=== PATIENT | female | born 1940 | race Two or more races ===

== ENCOUNTER 2022-01-05 04:29 | Inpatient (IN) | payer OTHER ==
[~2022-01-05] VITALS: Ht 154.9 cm; Wt 88.9 kg
[~2022-01-05 04:29] MED LIST: POLY119PG PO
[2022-01-06] MEDS ORDERED: LOSARTAN POTASS50 MG (08:22)
[2022-01-06] MEDS ORDERED: HYDROCHLOROTH12.5 MG (08:22)
[2022-01-06] MEDS ORDERED: EZETIMIBE10 MG (08:22)
[2022-01-06] MEDS ORDERED: HYDROCORTISONE59 ML (08:22)
[2022-01-06] MEDS ORDERED: AMMONIUM LACTA385 GM (08:22)
[2022-01-06] MEDS ORDERED: FLONASE16 GM (08:22)
[2022-01-06] MEDS ORDERED: TRIAMCINOLONE A15 G1 (08:22)
[2022-01-06] MEDS ORDERED: BENADRYL ITCH28.3 GM (08:22)
[2022-01-06] MEDS ORDERED: EUCRISA60 GM (08:22)
[2022-01-06] MEDS ORDERED: VITAMIN D3250 MCG (08:23)
[2022-01-06] MEDS ORDERED: ROSUVASTATIN CA40 MG (08:23)
[2022-01-06] MEDS ORDERED: AMLODIPINE-BEN1 EAC5 (08:23)
[2022-01-06] MEDS ORDERED: GABAPENTIN100 M2 (08:23)
[2022-01-06] MEDS ORDERED: SYMBICORT 16010.2 GM (08:23)
[2022-01-06] MEDS ORDERED: SYNTHROID75 MCG (08:23)
[2022-01-06] MEDS ORDERED: OMEPRAZOLE40 MG (08:23)
== END 2022-01-07 18:04 | disposition home or self-care (01) | DRG 305 ==
LOC: ER 04:29 → MEDJ 17:27 → SEC-K 17:27 → MEDJ 01-06 10:25
PROVIDERS: ADMIT Internal Medicine; ATTEND Internal Medicine
PROC: 4A12X4Z Monitoring of Cardiac Electrical Activity, External Approach (ICD-10-PCS; principal; 2022-01-06)
PROC: B24BZZZ Ultrasonography of Heart with Aorta (ICD-10-PCS; 2022-01-06)
DX: I16.0 Hypertensive urgency (principal); I20.9 Angina pectoris, unspecified; E78.49 Other hyperlipidemia; Z20.822 Contact with and (suspected) exposure to COVID-19; E66.8 Other obesity; I10 Essential (primary) hypertension

== ENCOUNTER 2024-05-09 17:19 | Emergency (ER) | payer OTHER ==
[~2024-05-09] VITALS: Ht 154.9 cm; Wt 81.6 kg
[~2024-05-09 17:19] MED LIST changes: +AMLODIPINE-BEN1 EAC5; +AMMONIUM LACTA385 GM; +BENADRYL ITCH28.3 GM; +EUCRISA60 GM; +EZETIMIBE10 MG; +FLONASE16 GM; +GABAPENTIN100 M2; +HYDROCHLOROTH12.5 MG; +HYDROCORTISONE59 ML; +LOSARTAN POTASS50 MG; +OMEPRAZOLE40 MG; +ROSUVASTATIN CA40 MG; +SYMBICORT 16010.2 GM; +SYNTHROID75 MCG; +TRIAMCINOLONE A15 G1; +VITAMIN D3250 MCG
[2024-05-09 17:27] VITALS: BP 145/87; O2SAT 99
[2024-05-09] MEDS ORDERED: KETOROLAC TROMETHAMINE 30 MG VIAL IM STA (19:31)
[2024-05-09] MEDS ORDERED: IBU600 MG PO (21:08)
== END 2024-05-09 21:20 | disposition home or self-care (01) ==
LOC: ER 17:19
DX: S09.8XXA Other specified injuries of head, initial encounter (principal); W18.39XA Other fall on same level, initial encounter; Y93.89 Activity, other specified; Y92.89 Other specified places as the place of occurrence of the external cause; Z91.041 Radiographic dye allergy status; Z91.013 Allergy to seafood; E78.00 Pure hypercholesterolemia, unspecified; E03.8 Other specified hypothyroidism; I10 Essential (primary) hypertension
CPT/HCPCS: 70450; 96372; 99284; J1885

== ENCOUNTER → 2024-05-12 | Emergency (ER) | payer OTHER ==
[~2024-05-12] MED LIST changes: +IBU600 MG PO
== END | disposition left against medical advice (07) ==
LOC: ER 17:35
DX: Z53.21 Procedure and treatment not carried out due to patient leaving prior to being seen by health care provider (principal)

== ENCOUNTER 2024-05-15 11:52 | Emergency (ER) | payer OTHER ==
[~2024-05-15] VITALS: Ht 154.9 cm; Wt 84.4 kg
== END 2024-05-15 14:32 | disposition home or self-care (01) ==
LOC: ER 11:54
DX: Z48.02 Encounter for removal of sutures (principal); Z91.013 Allergy to seafood; Z91.041 Radiographic dye allergy status

== ENCOUNTER 2024-07-29 13:50 | Emergency (ER) | payer OTHER ==
[~2024-07-29] VITALS: Ht 154.9 cm; Wt 84.4 kg
[2024-07-29] MEDS ORDERED: ACETAMINOPHEN 500 MG GEL..CAP PO ONE ×2 (14:30→15:17)
[2024-07-29] MEDS ORDERED: ORPHENADRINE CITRATE 30 MG/ML AMPUL IM ONE (14:30)
[2024-07-29] MEDS ORDERED: ORPHENADRINE CITRATE 30 MG/ML AMPUL ONE (15:17)
[2024-07-29 16:29] LABS: HEMATOCRIT 41.6 % (36.0-45.00); HEMOGLOBIN 14.4 g/dL (12.0-15.00); MEAN CELL VOLUME 95.5 fL (80.00-100.00); MEAN CORPUSCULAR HGB CONC 34.6 g/dl (32.0-36.0); PLATELET COUNT 297 K/uL (150-450); RED BLOOD COUNT 4.35 M/uL (4.00-6.00); RED CELL DISTRIBUTION WIDTH 14.4 % (11.5-14.5)
[2024-07-29 17:01] LABS: ALBUMIN 3.5 gm/dL (3.4-5.0); BILIRUBIN TOTAL 0.3 mg/dL (0.3-1.2); CALCIUM 9.2 mg/dL (8.5-10.1); CREATININE SERUM 0.65 mg/dL (0.55-1.02); GFR 87.26; GLOBULINA 3.8 G/DL (2.4-3.5); POTASSIUM 3.96 mEq/L (3.5-5.1); TOTAL PROTEIN 7.3 gm/dL (6.4-8.2)
[2024-07-29] MEDS ORDERED: ZANAFLEX2 M1 PO (18:00)
== END 2024-07-29 18:44 ==
LOC: ER 13:50
PROVIDERS: General Practice
DX: S00.93XA Contusion of unspecified part of head, initial encounter (principal); S60.221A Contusion of right hand, initial encounter; W18.39XA Other fall on same level, initial encounter; Y93.89 Activity, other specified; Y92.89 Other specified places as the place of occurrence of the external cause; Y99.9 Unspecified external cause status; M51.369 Other intervertebral disc degeneration, lumbar region without mention of lumbar back pain or lower extremity pain; M85.841 Other specified disorders of bone density and structure, right hand; M85.88 Other specified disorders of bone density and structure, other site; I10 Essential (primary) hypertension; E03.9 Hypothyroidism, unspecified; Z88.8 Allergy status to other drugs, medicaments and biological substances; Z91.013 Allergy to seafood; Z87.09 Personal history of other diseases of the respiratory system
CPT/HCPCS: 36415; 70450; 72125; 73130; 73521; 93005; 96372; 99284; J2360

== ENCOUNTER 2025-03-11 09:54 | Emergency (ER) | payer OTHER ==
[~2025-03-11] VITALS: Ht 154.9 cm; Wt 83.9 kg
[~2025-03-11 09:54] MED LIST changes: +ZANAFLEX2 M1 PO
[2025-03-11] MEDS ORDERED: KETOROLAC TROMETHAMINE 60 MG VIAL IM ONE ×2 (10:30→11:07)
[2025-03-11] MEDS ORDERED: DEXAMETHASONE SODIUM PHOSPHATE 4 MG/ML VIAL IM ONE (10:30)
[2025-03-11] MEDS ORDERED: DEXAMETHASONE SODIUM PHOSPHATE 4 MG/ML VIAL ONE (11:07)
[2025-03-11 11:24] LABS: BASO % 0.3 % (0.1-1.2); EOS # 0.12 (0.04-0.54); EOS % 1.7 % (0.7-7.0); LYMPH # 2.05 (1.18-3.74); LYMPH % 29.8 % (19.3-53.1); MEAN PLATELET VOLUME 10.20 fl (9.4-12.4); MONO # 0.68 (0.24-0.82); MONO % 9.9 % (4.7-12.5); NEUT # 3.99 (1.56-6.13); NEUT % 58.2 % (34.0-71.1); RED CELL DISTRIBUTION WIDTH 14.2 % (11.6-14.4)
[2025-03-11 11:45] LABS: ALT/SGPT 18.0 U/L (12-78); AST/SGOT 15.0 U/L (15-37); BILIRUBIN TOTAL 0.66 mg/dL (0.3-1.2); BUN CREA RATIO 13.0 (7.0-25.0); CREATININE SERUM 0.79 mg/dL (0.55-1.02); GFR 69.5; GLOBULINA 3.1 G/DL (2.4-3.5); GLUCOSE FASTING 103.0 mg/dL (65-100); OSMOLALITY SERUM 277.0 MOSM/KG (275-295)
[2025-03-11] MEDS ORDERED: NAPROXEN375 MG PO (12:59)
[2025-03-11] MEDS ORDERED: METHOCARBAMOL500 MG PO (12:59)
== END 2025-03-11 14:08 | disposition home or self-care (01) ==
LOC: ER 09:54
DX: S29.8XXA Other specified injuries of thorax, initial encounter (principal); W01.0XXA Fall on same level from slipping, tripping and stumbling without subsequent striking against object, initial encounter; Y93.89 Activity, other specified; Y92.59 Other trade areas as the place of occurrence of the external cause; Z91.013 Allergy to seafood; Z91.041 Radiographic dye allergy status; S89.82XA Other specified injuries of left lower leg, initial encounter; S49.82XA Other specified injuries of left shoulder and upper arm, initial encounter; E03.8 Other specified hypothyroidism; K59.00 Constipation, unspecified; M54.2 Cervicalgia; M62.838 Other muscle spasm
CPT/HCPCS: 36415; 70450; 72100; 72125; 72170; 73030; 73560; 96372; 99284; J1100; J1885